=== PATIENT | female | born 1985 | race African-American/Black ===

== ENCOUNTER 2017-12-21 15:01 | Observation (INO) | payer MEDICAID ==
[~2017-12-21] VITALS: Ht 162.6 cm; Wt 98.9 kg
[2017-12-21] MEDS ORDERED: PREN1TAB87 PO (15:40)
[2017-12-21] MEDS ORDERED: LACTATED RINGERS 1,000 ML IV SCH (15:45)
[2017-12-21 16:21] LABS: CLARITY URINE CLEAR (CLEAR); COLOR URINE YELLOW (YELLOW); KETONES URINE TRACE (NEGATIVE); LEUKOCYTE ESTERASE URINE NEGATIVE (NEGATIVE); NITRITE URINE NEGATIVE (NEGATIVE); OCCULT BLOOD URINE NEGATIVE (NEGATIVE); PROTEIN URINE NEGATIVE (NEGATIVE); SPECIFIC GRAVITY URINE 1.036 (1.005-1.030); UROBILINOGEN URINE 0.2 E.U./dL (0.2-1.0)
== END 2017-12-21 16:49 | disposition home or self-care (01) ==
LOC: L&D 15:01
PROVIDERS: ADMIT Obstetrics & Gynecology; ATTEND Obstetrics & Gynecology
DX: O26.892 Other specified pregnancy related conditions, second trimester (principal); R10.9 Unspecified abdominal pain; Z3A.22 22 weeks gestation of pregnancy
CPT/HCPCS: 81003; 96360; 99281; G0378; J7120; 96361

== ENCOUNTER 2018-04-13 08:12 | Inpatient (IN) | payer OTHER ==
[~2018-04-13] VITALS: Ht 162.6 cm; Wt 103.0 kg
[~2018-04-13 08:12] MED LIST: PREN1TAB87 PO
[2018-04-13] MEDS ORDERED: DEXT 5%/LR + PITOCIN 20UNITS/L 1,000 ML IV SCH ×2 (08:48→20:51)
[2018-04-13] MEDS ORDERED: METHYLERGONOVINE MALEATE 0.2 MG/ML IM PRN (09:00)
[2018-04-13] MEDS ORDERED: CARBOPROST TROMETHAMINE 250 MCG/ML AMPUL IM PRN (09:00)
[2018-04-13] MEDS ORDERED: NALOXONE HCL 0.4 MG/ML 1ML VIAL IM PRN (09:00)
[2018-04-13] MEDS ORDERED: BUTORPHANOL TARTRATE 2 MG/ML VIAL IV PRN (09:00)
[2018-04-13] MEDS: LACTATED RINGERS 1,000 ML IV SCH ×2 (09:10→13:52)
[2018-04-13] MEDS: TERBUTALINE SULFATE 1MG/ML VIAL SUBCUT PRN ×2 (09:10→14:48)
[2018-04-13] MEDS ORDERED: MORPHINE SULFATE/PF 1MG/ML 10ML AMP ONE (09:26)
[2018-04-13] MEDS ORDERED: FENTANYL CITRATE/PF 50MCG/ML 2ML VIAL ONE (09:26)
[2018-04-13] MEDS ORDERED: OXYTOCIN 10 UNITS/ML 1ML ONE ×2 (09:27→19:53)
[2018-04-13] MEDS ORDERED: EPHEDRINE SULFATE 50MG/ML VIAL ONE (09:27)
[2018-04-13] MEDS ORDERED: ONDANSETRON HCL 4MG/2ML VIAL ONE (09:27)
[2018-04-13] MEDS ORDERED: GLYCOPYRROLATE 0.2 MG/ML 2ML VIAL ONE (09:27)
[2018-04-13] MEDS ORDERED: PHENYLEPHRINE HCL 10 MG/ML 1ML (IV VIAL) IV ONE (09:27)
[2018-04-13 09:40] LABS: BASOPHILS % 0.8 % (0.0-2.0); HEMATOCRIT. 38.3 % (36.0-48.0); HEMOGLOBIN. 12.7 g/dL (12.0-16.0); MEAN CORPUSCULAR HEMOGLOBIN 28.1 pg (28.0-32.0); MEAN CORPUSCULAR VOLUME 84.4 fL (81.0-99.0); MEAN PLATELET VOLUME 9.8 fl (7.4-10.4); MONOCYTES % 9.7 % (2.0-8.0); NEUTROPHILS % 66.5 % (40.0-76.0); PLATELET 222 x1000/uL (130-400); RED BLOOD CELL COUNT 4.54 mill/uL (4.2-5.4); RED CELL DISTRIBUTION WIDTH 15.5 % (11.6-14.6)
[2018-04-13 09:43] LABS: CLARITY URINE CLEAR (CLEAR); COLOR URINE YELLOW (YELLOW); KETONES URINE NEGATIVE (NEGATIVE); LEUKOCYTE ESTERASE URINE NEGATIVE (NEGATIVE); NITRITE URINE NEGATIVE (NEGATIVE); OCCULT BLOOD URINE NEGATIVE (NEGATIVE); PROTEIN URINE NEGATIVE (NEGATIVE); SPECIFIC GRAVITY URINE 1.016 (1.005-1.030); UROBILINOGEN URINE 0.2 E.U./dL (0.2-1.0)
[2018-04-13 09:50] LABS: PARTIAL THROMBOPLASTIN TIME 24.8 sec (23.4-31.0); PROTHROMBIN TIME 10.2 sec (9.4-11.6)
[2018-04-13 09:51] LABS: *AMPHETAMINES SCREEN URINE NEGATIVE (NEGATIVE); *BARBITURATES SCREEN URINE NEGATIVE (NEGATIVE); *BENZODIAZEPINES SCREEN URINE NEGATIVE (NEGATIVE); *COCAINE SCREEN URINE NEGATIVE (NEGATIVE); CANNABINOID URINE SCREEN NEGATIVE (NEGATIVE)
[2018-04-13 09:52] LABS: METHADONE URINE SCREEN NEGATIVE (NEGATIVE); OPIATES URINE SCREEN NEGATIVE (NEGATIVE); PHENCYCLIDINE URINE SCREEN NEGATIVE (NEGATIVE)
[2018-04-13 11:13] LABS: HEPATITIS B SURFACE ANTIGEN NEGATIVE; RUBELLA IGG 31.4 IU/mL (4.99-10)
[2018-04-13] MEDS ORDERED: CITRIC ACID/SODIUM CITRATE SOLN 30ML UDC PO ONE (12:00)
[2018-04-13] MEDS ORDERED: CEFAZOLIN 2000MG PREMIX 50 ML IV ONE (15:52)
[2018-04-13] MEDS ORDERED: CITRIC ACID/SODIUM CITRATE SOLN 30ML UDC PO NR (18:00)
[2018-04-13] MEDS ORDERED: DIPHENHYDRAMINE 50MG/ML VIAL ONE (20:18)
[2018-04-13] MEDS ORDERED: NALOXONE HCL 0.4 MG/ML 1ML VIAL IV PRN (20:45)
[2018-04-13] MEDS ORDERED: DIPHENHYDRAMINE 50MG/ML VIAL IV PRN (20:45)
[2018-04-13] MEDS ORDERED: ONDANSETRON HCL 4MG/2ML VIAL IV PRN (21:00)
[2018-04-13] MEDS ORDERED: LANOLIN OINT 0.25 GM TUBE TOP PRN (21:00)
[2018-04-13] MEDS ORDERED: RHO(D) IMMUNE GLOBULIN 300 MCG/SYR IM PRN (21:00)
[2018-04-13] MEDS ORDERED: ACETAMINOPHEN WITH CODEINE 300/30MG TABLET PO PRN (21:00)
[2018-04-13 23:00] VITALS: BP 124/71
[2018-04-13 23:30] VITALS: BP 126/58
[2018-04-14] VITALS: BP 123/61
[2018-04-14] MEDS: KETOROLAC 30MG/ML VIAL IV PRN ×2 (05:51→19:49)
[2018-04-14 06:00] VITALS: BP 124/68
[2018-04-14 08:34] VITALS: BP 121/63
[2018-04-14 11:17] LABS: BASOPHILS % 0.3 % (0.0-2.0); EOSINOPHILS % 0.4 % (0.0-5.0); HEMOGLOBIN. 11.3 g/dL (12.0-16.0); LYMPHOCYTES % 7.4 % (20.0-50.0); MEAN CORPUSCULAR HEMOGLOBIN 28.1 pg (28.0-32.0); MEAN CORPUSCULAR VOLUME 84.2 fL (81.0-99.0); MEAN PLATELET VOLUME 9.9 fl (7.4-10.4); MONOCYTES % 9.4 % (2.0-8.0); NEUTROPHILS % 82.5 % (40.0-76.0); PLATELET 203 x1000/uL (130-400); RED BLOOD CELL COUNT 4.04 mill/uL (4.2-5.4); RED CELL DISTRIBUTION WIDTH 15.6 % (11.6-14.6)
[2018-04-14 12:25] VITALS: BP 114/69
[2018-04-14] MEDS ORDERED: DEXT 5%/LACTATED RINGERS 1,000 ML IV SCH (14:27)
[2018-04-14] MEDS: PRENATAL VIT/FE FUMARATE/FA TABLET PO SCH (14:28)
[2018-04-14 19:30] VITALS: BP 128/80
[2018-04-15] VITALS (7 sets, daily range): BP systolic 101–136; BP diastolic 60–89
[2018-04-15] MEDS: PRENATAL VIT/FE FUMARATE/FA TABLET PO SCH (09:00)
[2018-04-15] MEDS: HYDROCODONE/ACETAMINOPHEN 5/325MG TABLET PO PRN ×2 (09:00→22:16)
[2018-04-15] MEDS: IBUPROFEN 400MG TABLET PO PRN (14:00)
[2018-04-15] MEDS ORDERED: TETANUS, DIPHTHERIA, PERTUSSIS VAC/PF 0.5ML (>7YR OLD) IM ONE (19:00)
[2018-04-16] VITALS: BP 123/80
[2018-04-16 07:54] VITALS: BP 128/77
[2018-04-16] MEDS: IBUPROFEN 400MG TABLET PO PRN (08:30)
[2018-04-16] MEDS: PRENATAL VIT/FE FUMARATE/FA TABLET PO SCH (08:30)
[2018-04-16] MEDS ORDERED: TETANUS, DIPHTHERIA, PERTUSSIS VAC/PF 0.5ML (>7YR OLD) IM ONE (09:30)
== END 2018-04-16 12:30 | disposition home or self-care (01) | DRG 540 ==
LOC: UNDOADMOB 08:12 → L&D 08:12 → OBSVTOIN 08:24 → L&D 08:24 → 7EST PP/OB 22:29 → L&D 22:29
PROVIDERS: ADMIT Obstetrics & Gynecology; ATTEND Obstetrics & Gynecology
PROC: 0UB70ZZ Excision of Bilateral Fallopian Tubes, Open Approach (ICD-10-PCS; 2018-04-13)
PROC: 10D00Z1 Extraction of Products of Conception, Low, Open Approach (ICD-10-PCS; principal; 2018-04-13 18:45)
DX: O34.211 Maternal care for low transverse scar from previous cesarean delivery (principal); D62 Acute posthemorrhagic anemia; O99.02 Anemia complicating childbirth; Z30.2 Encounter for sterilization; Z37.0 Single live birth; Z3A.39 39 weeks gestation of pregnancy
CPT/HCPCS: 36415; 80305; 81003; 85025; 85610; 85730; 86592; 86703; 86762; 86850; 86900; 87340; 88302; 88307; 90715; J0690; J1200; J1885; J2274; J2370; J2405; J2590; J3010; J3105; J3490; J7120; J7121; A4315

== ENCOUNTER 2019-10-18 08:32 | Emergency (ER) | payer OTHER ==
[~2019-10-18] VITALS: Ht 165.1 cm; Wt 75.0 kg
[2019-10-18 08:44] VITALS: BP 176/100
== END 2019-10-18 12:05 | disposition left against medical advice (07) ==
LOC: ER 08:32
DX: R10.9 Unspecified abdominal pain (principal); Z53.21 Procedure and treatment not carried out due to patient leaving prior to being seen by health care provider